=== PATIENT | male | born 1955 | race Caucasian/White ===

== ENCOUNTER 2024-12-13 17:23 | Emergency (ER) | payer MEDICARE, MEDICAID, SELFPAY ==
[2024-12-13] VITALS (7 sets, daily range): BP systolic 134–219; BP diastolic 96–120; PULSE 60–63; RESP 18–20; TEMP 36.4–36.6; O2SAT 95–97; BMI 20.5
--- NOTE | 2024-12-13 17:50 | EKG_ITS ---
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
--- NOTE | 2024-12-13 17:51 | XR_ITS ---
Examination: AP chest single view Technique one AP portable sitting chest single view Date and time: December 13, 2024, 1848 hrs., Comparison June 10, 2023 Indications: Difficulty breathing today, history left lung pneumonia, history Erickson type B thoracic aortic aneurysm Findings: Normal heart size Slightly less prominent parenchymal disease in the left upper lobe No pulmonary edema Prominent osteopenia Impression: Slightly less prominent parenchymal disease in the left upper lobe, probable scarring
--- NOTE | 2024-12-13 17:51 | PD.EDRME ---
Rapid Medical Screening Exam RME Arrival date/time: 12/13/24 17:23 Chief Complaint: Weakness Vital signs: Vital Signs Pulse Rate 60 12/13/24 17:27 Respiratory Rate 19 12/13/24 17:27 Blood Pressure 202/110 H 12/13/24 17:27 Pulse Oximetry (%) 97 12/13/24 17:27 Oxygen Delivery Method Room Air 12/13/24 17:27 Vital signs reviewed by provider: Yes RME Narrative: Patient is a 69-year-old male here requesting more pain medication that is in the ED with concerns for weakness. Denies chest pain palpitations abdominal pain dysuria hematuria melena bloody stools. Denies drugs alcohol and smoking. Patient has a history of chronic pain, A-fib flutter, patient take Xarelto, pacemaker also has a history of hypertension does not know what medications he takes. For the patient he did take his medication in the morning. Patient's net application architect is Dr. Elder
[2024-12-13 18:30] LABS: Basophils # (Auto) 0.1 Thou/mm3 (0.0-0.2); Basophils % (Auto) 2 % (0-2.5); Eosinophils # (Auto) 0.2 Thou/mm3 (0.0-0.5); Eosinophils % (Auto) 3 % (0-10); Hematocrit 37.9 % (41.0-53.0); Hemoglobin 12.4 g/dL (13.5-16.0); Immature Granulocytes Auto 0.01 Thou/mm3 (0.00-0.00); Lymphocytes # (Auto) 2.1 Thou/mm3 (1.0-4.8); Lymphocytes % (Auto) 31 % (10-50); Mean Corpuscular HGB Conc 32.7 g/dl (31.0-37.0); Mean Corpuscular Hemoglobin 28.6 pg (25.0-35.0); Mean Corpuscular Volume 87 fL (80-100); Monocytes # (Auto) 0.5 Thou/mm3 (0.0-0.8); Monocytes % (Auto) 8 % (0-12); Neutrophils # (Auto) 3.9 Thou/mm3 (1.8-7.7); Neutrophils % (Auto) 57 % (37-80); Nucleated Red Blood Cell # 0.00 Thou/mm3 (0.00-0.00); Nucleated Red Blood Cell % 0 /100 WBC (0); Platelet Count 287 Thou/mm3 (140-440); RDW Standard Deviation 52.8 fL (35.1-43.9); Red Blood Count 4.34 Miln/mm3 (4.50-5.90); White Blood Count 6.9 Thou/mm3 (3.8-10.6)
--- NOTE | 2024-12-13 18:32 | EDNOTE_ITS ---
ED Weakness RME/HPI General Chief complaint: Weakness Stated complaint: WEAKNESS Time Seen by Provider: 12/13/24 18:31 Arrival date/time: 12/13/24 17:23 RME / HPI RME / HPI Narrative: 69-year-old male here for evaluation regarding generalized body weakness, patient told me that he woke up this morning more weaker than usual. Also complained of headache described as dull ache, severity mild. Patient usually takes [place] twice a day for chronic neck pain and back pain. Denies chest pain palpitations abdominal pain dysuria hematuria melena bloody stools. Denies drugs alcohol and smoking. Patient has a history of chronic pain, A-fib flutter, patient take Xarelto, pacemaker also has a history of hypertension does not know what medications he takes. For the patient he did take his medication in the morning. Patient's home hospice aide is Dr. Elder. Patient denies any fall. Related Data Home Medications ?Medication ?Instructions ?Recorded ?Confirmed rivaroxaban 15 mg tablet (Xarelto) 15 mg PO QPM 04/16/23 diazepam 10 mg tablet 10 mg PO Q12H PRN prn 04/16/23 doxazosin 4 mg tablet 4 mg PO QDAY 02/20/22 escitalopram oxalate 20 mg tablet 20 mg PO QDAY 04/16/23 hydrocodone 10 mg-acetaminophen 1 tab PO BID PRN Pain 02/20/22 04/16/23 325 mg tablet umeclidinium 62.5 mcg-vilanterol 1 inh inhalation QDAY 02/20/22 04/16/23 25 mcg/actuation powdr for inhalation (Anoro Ellipta) Previous Rx's ?Medication ?Instructions ?Recorded diclofenac 1.5 % drops-lidoc 2.5 1 ea topical QDAY PRN pain #30 09/26/23 %-methyl salicy 4 %-camphor 2 % patches patch hydrocodone 10 mg-acetaminophen 1 tab PO BID PRN pain #15 tabs 09/26/23 325 mg tablet hydrocodone 10 mg-acetaminophen 1 tab PO BID PRN pain #15 tabs 09/26/23 325 mg tablet Allergies Allergy/AdvReac Type Severity Reaction Status Date / Time No Known Allergies Allergy Verified 12/13/24 17:35 Review of Systems Review of Systems Narrative Review of Systems: Review of system reviewed and within normal limits except mentioned in HPI ED Exam Narrative Physical exam: VITAL SIGNS: Reviewed. GENERAL APPEARANCE: Alert and interactive, follows commands, no acute distress, HEAD AND FACE: Non-traumatic. ENT: PERRL, pink conjunctivitis, eyelid no trauma, Mucous membrane moist. NECK: Supple, nontender, no nuchal rigidity. CHEST: No tenderness, no crepitus, no paradoxical movement, no retractions. LUNGS: Clear, well ventilated, symmetric, no rales, no wheezing, no ronchi, no stridor, good breath sounds bilaterally. HEART: Regular rate, regular rhythm, no murmur, no gallops. ABDOMEN: Soft, positive bowel sounds, nondistended, no guarding, nontender, no rebound, no masses, RECTAL: Deferred. GENITAL: Deferred. NEUROLOGICAL: Gross motor function intact sensory function intact, Appropriate for age. MUSCULOSKELETAL: low back nontender, full range of motion. EXTREMITIES: Nontender, full range of motion. SKIN: Color pink, dry, no rash, no lacerations, no abrasions, no contusions. LYMPHATICS: Deferred. Course Quality Measures none Orders Category Date Time Status Bedside COVID-19 Antigen Test NOW Care 12/13/24 17:50 Active Bedside Influenza A&B Antigen Test NOW Care 12/13/24 17:50 Active EKG (ED ONLY) *Do not use* NOW Care 12/13/24 17:50 Completed CXR [XR chest 1V] Stat Exams 12/13/24 17:51 Completed EKG (ED Only) Stat Exams 12/13/24 17:50 Draft BNP [B-Type Natriuretic Peptide] Stat Lab 12/13/24 18:14 Completed CBC Stat Lab 12/13/24 18:14 Completed CMP [Comprehensive Metabolic Panel] Stat Lab 12/13/24 18:14 Completed FLU A&B [Influenza A & B Rapid Panel] Stat Lab 12/13/24 19:05 Completed T4 (Thyroxine) Stat Lab 12/13/24 18:14 Completed TSH [Thyroid Stimulating Hormone] Stat Lab 12/13/24 18:14 Completed Troponin I Stat Lab 12/13/24 18:14 Completed UA, C/S IF [Urinalysis, C/S if Indicated] Stat Lab 12/13/24 19:21 Completed Diazepam [Valium] Med 12/13/24 20:58 Discontinued 10 mg PO X1 ONE HYDROcodone/APAP 10/325 [[place] 10/325] Med 12/13/24 18:40 Discontinued 1 tab PO X1 ONE hydrALAZINE INJ [Apresoline Inj] Med 12/13/24 21:37 Discontinued 10 mg IVP X1 ONE hydrALAZINE INJ [Apresoline Inj] Med 12/13/24 17:50 Discontinued 15 mg IVP X1 ONE Vital Signs Vital signs: Vital Signs Pulse Rate 60 12/13/24 17:27 Respiratory Rate 19 12/13/24 17:27 Blood Pressure 202/110 H 12/13/24 17:27 Pulse Oximetry (%) 97 12/13/24 17:27 Oxygen Delivery Method Room Air 12/13/24 17:27 Weakness MDM Narrative MDM Narrative:: 69-year-old male here for evaluation regarding generalized body weakness, patient told me that he woke up this morning more weaker than usual. Also complained of headache described as dull ache, severity mild. Patient usually takes [place] twice a day for chronic neck pain and back pain. Denies chest pain palpitations abdominal pain dysuria hematuria melena bloody stools. Denies drugs alcohol and smoking. Patient has a history of chronic pain, A-fib flutter, patient take Xarelto, pacemaker also has a history of hypertension does not know what medications he takes. For the patient he did take his medication in the morning. Patient's home hospice aide is Dr. Elder. Patient denies any fall. Patient is laboratory workup today came back benign. EKG showed paced rhythm, ventricular rate of 60 bpm, no ST segment elevation depression noted. Chest x- ray came back unremarkable no pneumonia noted. Patient was given [place], was also given Valium in the emergency room hydralazine IV, and latest blood pres sure was noted to be 176/96. Patient supposed to be taking his blood pressure tonight. Patient currently is not having any complaints. Patient ready to go home. Patient will be By her doctor tonight Patient data External records reviewed:: None Clinical information provided by:: patient Social determinants that could affect healthcare access:: none (Hypertension, chronic pain syndrome) Patient has the following chronic illnesses:: Chronic pain syndrome, hypertension, How is presenting disease/condition affected by chronic disease/condition?: exacerbated by Evaluation data The following diagnostics were reviewed and interpreted by me:: lab results, radiology exam(s) and EKG tracing(s) Lab and/or radiology exams considered but not ordered:: None Interpretation Summary: See results MDM Medications / Prescriptions Medications or Prescriptions considered but not ordered:: None Medication administrations:: Medication Administration History Discontinued Medications Hydrocodone Bitart/Acetaminophen (Hydrocodone/Apap 10/325 Tab) 1 tab PO X1 ONE Stop: 12/13/24 18:41 Last Admin: 12/13/24 18:47 Dose: 1 tab Documented By: EF Diazepam (Diazepam 5 Mg Tablet) 10 mg PO X1 ONE Stop: 12/13/24 20:59 Last Admin: 12/13/24 21:16 Dose: 10 mg Documented By: RC Hydralazine HCl (Hydralazine Inj 20 Mg/Ml Vial) 15 mg IVP X1 ONE Stop: 12/13/24 17:51 Last Admin: 12/13/24 18:47 Dose: 15 mg Documented By: EF Hydralazine HCl (Hydralazine Inj 20 Mg/Ml Vial) 10 mg IVP X1 ONE Stop: 12/13/24 21:38 Last Admin: 12/13/24 21:46 Dose: 10 mg Documented By: CB Hydralazine, diazepam [place] Consultations Consultation(s) initiated? (list below): No Diagnosis Weakness Differential Diagnosis: anemia, dehydration and other (Hypertension) Most likely diagnosis given after review of the tests above:: Hypertension, generalized weakness Admission Indicated Admission indicated?: not indicated Admission Request Was there a request for admission?: No Disposition Plan Disposition Plan: Discharge Discharge Attestation Discharge Attestation: The patient was given an opportunity to ask questions and understood the dada alvarez instructions. Discharge instructions specifically effects, indications for sooner follow up or return to the emergency department, and the expected course of current diagnosis. Patient condition: Stable Discharge Plan Plan Patient Disposition: HOME (Self Care) Discharge Disposition comment: Stable Prescriptions/Referrals Prescriptions/Med Rec: No Action Xarelto 15 mg Tablet 15 mg PO QPM hydrocodone-acetaminophen 10-325 mg Tablet 1 tab PO BID PRN (Reason: Pain) doxazosin 4 mg Tablet 4 mg PO QDAY diazepam 10 mg Tablet 10 mg PO Q12H PRN (Reason: prn) escitalopram oxalate 20 mg tablet 20 mg PO QDAY Patient Comments: TAKE 1 TABLET BY MOUTH EVERY DAY Anoro Ellipta 62.5-25 mcg/actuation blister with device 1 inh INHALATION QDAY Patient Comments: INHALE 1 PUFF BY MOUTH ONCE A DAY hydrocodone-acetaminophen 10-325 mg tablet 1 tab PO BID MDD 4 g APAP PRN (Reason: pain) Qty: 15 0RF hydrocodone-acetaminophen 10-325 mg tablet 1 tab PO BID MDD 4 g APAP PRN (Reason: pain) Qty: 15 0RF avvamsmgzg-veez-px-ellie-camphor 1.5-2.5-4-2 % kit, patch, solution drops 1 ea topical QDAY PRN (Reason: pain) Qty: 30 0RF Referrals: Carlos Hutton MD [Primary Care Provider, Family Practice] - In 1 week Problem List Clinical Impression: Weakness generalized Patient/Caregiver Discharge Instructions Education Materials: ED Weakness (Uncertain Cause) Additional Instructions: Thank you for the opportunity for serving you today. You are stable for discharged . You are advised to: Follow-up with your PCP in 1 to 2 days Return to ED for worsening of symptoms Print Language: Senegalese Stand Alone Forms: Dianna Award Info., Patient Portal Info Letter PA/INDUSTRIAL TRACTOR DRIVER Supervising Physician PA/INDUSTRIAL TRACTOR DRIVER Supervising Physician: Dr Palma
[2024-12-13 18:46] LABS: B-Type Natriuretic Peptide 245 pg/mL (0-100)
[2024-12-13] MEDS: hydrALAZINE INJ 20 MG/ML VIAL 15 MG IVP (18:47)
[2024-12-13 18:50] LABS: Alanine Aminotransferase 8 U/L (10-49); Albumin, Serum 4.4 gm/dL (3.4-4.8); Albumin/Globulin Ratio 1.7 (1.2-2.2); Alkaline Phosphatase 93 U/L (46-116); Anion Gap 4 (7-16); Aspartate Amino Transferase 19 U/L (0-34); BUN/Creatinine Ratio 19 Ratio (12-20); Bilirubin,Total 0.3 mg/dL (0.3-1.2); Blood Urea Nitrogen 33 mg/dL (9-23); Calcium 9.5 mg/dL (8.3-10.6); Calcium (Corrected) 9.5 mg/dL (8.5-10.1); Carbon Dioxide 30.2 mMol/L (20.0-31.0); Chloride 106 mMol/L (98-107); Creatinine (Component) 1.7 mg/dL (0.6-1.3); Estimated Creatinine Clearance 30.7 mL/min (>60); Globulin 2.6 gm/dL (2.3-3.5); Glucose 88 mg/dL (74-106); Osmolality,Calculated 285 (275-295); Potassium 3.6 mMol/L (3.4-5.1); Sodium 140 mMol/L (136-145); Thyroid Stimulating Hormone 2.85 uIU/mL (0.55-4.78); Total Protein 7.0 gm/dL (5.7-8.2); Troponin I < 0.020 ng/mL (0.0-0.045); eGFR 43 See Note
[2024-12-13 19:02] LABS: T4 (Thyroxine) 7.3 mcg/dL (4.5-10.9)
[2024-12-13 19:24] LABS: Collection Type, Urine Clean Catch; Squamous Epithelial Cell,Urine 0 /hpf (0-5)
[2024-12-13 19:28] LABS: Bilirubin,Urine Negative (Negative); Blood,Urine Negative (Negative); Clarity,Urine Clear (Clear/Hazy); Color,Urine Colorless (Lt Yel-Yel); Culture Indicated,Urine Not Indicated; Glucose, Urine Negative (Negative); Ketones,Urine Negative (Negative); Leukocyte Esterase,Urine Negative (Negative); Nitrite,Urine Negative (Negative); PH,Urine 7.0 (5.0-7.0); Protein,Urine Negative (Neg - Trace); RBC,Urine 1 /hpf (0-3); Specific Gravity,Urine 1.007 (1.001-1.035); Urobilinogen,Urine Negative mg/dL (0.0-1.0); WBC,Urine 1 /hpf (0-5)
[2024-12-13 19:30] LABS: Influenza A Ag Negative; Influenza B Ag Negative
[2024-12-13] MEDS: DIAZEPAM 5 MG TABLET 10 MG PO (21:16)
[2024-12-13] MEDS: hydrALAZINE INJ 20 MG/ML VIAL 10 MG IVP (21:46)
== END 2024-12-13 22:56 | disposition home or self-care (01) ==
PROVIDERS: Emergency Medicine; Emergency Provider Emergency Medicine; PCP Family Medicine
DX: R53.1 Weakness (principal); I10 Essential (primary) hypertension; I48.91 Unspecified atrial fibrillation; Z95.0 Presence of cardiac pacemaker
CPT/HCPCS: 36415; 71045; 80053; 81001; 83880; 84436; 84443; 84484; 85025; 87502; 87811; 93005; 96374; 96376; 99284; J0360; A9270

== ENCOUNTER 2024-12-14 14:12 | Emergency (ER) | payer MEDICARE, MEDICAID, SELFPAY ==
[2024-12-14] VITALS (17 sets, daily range): BP systolic 161–232; BP diastolic 67–142; PULSE 60–80; RESP 9–25; TEMP 36.2–37.9; O2SAT 80–98; BMI 21.1
--- NOTE | 2024-12-14 14:28 | XR_ITS ---
Examination: CT brain head without contrast. 2-D sagittal coronal reconstructions Date and time of exam:December 14, 2024, 1819 hrs., Comparison May 11, 2023 Indications: High blood pressure and head pain today CTDI: vol (mGy):48.7 DLP: (mGycm):990 Technique: Multiple CT axial sections of the brain have been obtained, 5 mm slice thickness. Contrast has not been administered. 2-D sagittal, coronal reconstructions have been obtained Low dose protocols were performed. One or more of the following dose reduction techniques were used; automated exposure control, adjustment of the mA and/or KV according to patient size, use of iterative reconstruction technique. Findings: No significant ventricular enlargement. 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 No mass effect or midline shift Basal cisterns are not remarkable. Fourth ventricle is midline. Cranial vault intact. Impression: Negative for acute hemorrhage, mass effect or midline shift
--- NOTE | 2024-12-14 14:30 | EKG_ITS ---
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1955 Requested By: Von Woodson Order Number: [id number] Reading MD: Von Woodson Measurements Intervals [place] Rate: 68 P: 44 PA: 144 QRS: -15 QRSD: 94 T: 50 QT: 447 QTc: 475 Interpretive Statements SINUS RHYTHM POSSIBLE LEFT ATRIAL ENLARGEMENT [-0.1mV P-WAVE IN V1/V2] POSSIBLE LEFT VENTRICULAR HYPERTROPHY [VOLTAGE CRITERIA PLUS LAE OR QRS WIDENING] NONSPECIFIC ST & T-WAVE ABNORMALITY PROLONGED QT INTERVAL Compared to ECG 12/13/2024 18:46:22 T-wave abnormality now present Prolonged QT interval now present Atrial-paced complex(es) or rhythm no longer present ST (T wave) deviation no longer present /store/S0/[id number]/[id number].pdf
--- NOTE | 2024-12-14 14:31 | PD.EDHA ---
ED Headache RME/HPI General Chief Complaint: Headache Stated Complaint: HEADACHE Time Seen by Provider: 12/14/24 14:22 Arrival date/time: 12/14/24 14:12 RME / HPI RME / HPI Narrative: 69-year-old male patient with significant history of anxiety, chronic neck pain, headache, came in for evaluation regarding worsening headache. Patient has been having worsening headache for the last 5 days, despite taking [place] and still having headache. Describes dull ache, severity moderate. Patient denies any recent fall or trauma. Denies any fever denies any focal neurologic deficit. Patient has been taking [place] for chronic neck pain and low back pain. Also taking diazepam. Patient told me that he took all his blood pressure medication this morning despite his blood pressures still above 200 systolic. Related Data Home Medications ?Medication ?Instructions ?Recorded ?Confirmed rivaroxaban 15 mg tablet (Xarelto) 15 mg PO QPM 03/24/19 04/16/23 diazepam 10 mg tablet 10 mg PO Q12H PRN prn 02/20/22 04/16/23 doxazosin 4 mg tablet 4 mg PO QDAY 02/20/22 04/16/23 escitalopram oxalate 20 mg tablet 20 mg PO QDAY 02/20/22 04/16/23 hydrocodone 10 mg-acetaminophen 1 tab PO BID PRN Pain 02/20/22 04/16/23 325 mg tablet umeclidinium 62.5 mcg-vilanterol 1 inh inhalation QDAY 02/20/22 04/16/23 25 mcg/actuation powdr for inhalation (Anoro Ellipta) Previous Rx's ?Medication ?Instructions ?Recorded diclofenac 1.5 % drops-lidoc 2.5 1 ea topical QDAY PRN pain #30 09/26/23 %-methyl salicy 4 %-camphor 2 % patches patch hydrocodone 10 mg-acetaminophen 1 tab PO BID PRN pain #15 tabs 09/26/23 325 mg tablet hydrocodone 10 mg-acetaminophen 1 tab PO BID PRN pain #15 tabs 09/26/23 325 mg tablet acetaminophen 300 mg-codeine 15 mg 1 tab PO Q8H PRN pain #14 tabs 12/15/24 tablet amlodipine 5 mg tablet 5 mg PO QDAY #30 tabs 12/15/24 Allergies Allergy/AdvReac Type Severity Reaction Status Date / Time No Known Allergies Allergy Verified 12/14/24 14:31 Course Quality Measures none Orders Category Date Time Status CT Screening NOW Care 12/15/24 01:29 Completed EKG (ED ONLY) *Do not use* NOW Care 12/14/24 14:[address] angio chest Stat Exams 12/15/24 01:[address] chest abdomen pelvis wo Stat Exams 12/14/24 14:[address] head/brain wo con Stat Exams 12/14/24 14:28 Completed EKG (ED Only) Stat Exams 12/14/24 14:30 Draft US abdomen Stat Exams 12/14/24 14:41 Completed CBC [CBC] Stat Lab 12/14/24 14:56 Completed CMP [Comprehensive Metabolic Panel] Stat Lab 12/14/24 14:56 Completed Troponin I Stat Lab 12/14/24 14:56 Completed UA, C/S IF [Urinalysis, C/S if Indicated] Stat Lab 12/14/24 16:15 Completed Diltiazem Inj [Cardizem Inj] Med 12/15/24 02:57 Discontinued 10 mg IV X1 ONE Diltiazem Inj [Cardizem Inj] Med 12/15/24 00:32 Discontinued 5 mg IV X1 ONE HYDROcodone/APAP 10/325 [[place] 10/325] Med 12/14/24 14:28 Discontinued 1 tab PO X1 ONE HYDROcodone/APAP 10/325 [[place] 10/325] Med 12/14/24 18:23 Discontinued 1 tab PO X1 ONE HYDROcodone/APAP 10/325 [[place] 10/325] Med 12/15/24 02:03 Discontinued 1 tab PO X1 ONE Sodium Chloride 0.9% 500 ml [Ns] 500 ml Med 12/15/24 01:29 Discontinued IV 30 mls/hr hydrALAZINE HCL [Apresoline] Med 12/14/24 14:28 Discontinued 5 mg PO X1 ONE hydrALAZINE HCL [Apresoline] Med 12/14/24 14:33 Discontinued 50 mg PO X1 ONE hydrALAZINE INJ [Apresoline Inj] Med 12/14/24 22:39 Discontinued 20 mg IVP X1 ONE Vital Signs Vital signs: Vital Signs Temperature 98.1 F 12/14/24 14:35 Pulse Rate 70 12/14/24 14:35 Respiratory Rate 16 12/14/24 14:35 Blood Pressure 219/112 H 12/14/24 14:35 Pulse Oximetry (%) 96 12/14/24 14:35 Oxygen Delivery Method Room Air 12/14/24 14:35 Headache MDM Narrative MDM Narrative:: 69-year-old male patient with significant history of anxiety, chronic neck pain, headache, came in for evaluation regarding worsening headache. Patient has been having worsening headache for the last 5 days, despite taking [place] and still having headache. Describes dull ache, severity moderate. Patient denies any recent fall or trauma. Denies any fever denies any focal neurologic deficit. Patient has been taking [place] for chronic neck pain and low back pain. Also taking diazepam. Patient told me that he took all his blood pressure medication this morning despite his blood pressures still above 200 systolic. Patient's laboratory workup is significant for potassium 3.2, creatinine 1.[address] scan of the head came back unremarkable. CT of the chest abdomen and pelvis noncontrast showed Limited assessment of Lindsay type B thoracic aortic aneurysm and dissection as there is no contrast intravenous on this study However, transverse dimensions descending thoracic aorta 5.1 x 4.3 cm compared to 4.8 x 3.5 cm on CTA chest June 10, 2023 consistent with interval enlargement, recommend transfer for assessment by cardiovascular service No abdominal aortic aneurysm dilatation Prominent osteopenia with advanced degenerative disc disease L5-S1 EKG showed normal sinus rhythm, ventricular rate of 60 bpm, no ST segment elevation or depression noted. Patient is to be transferred and evaluated by cardiovascular surgeon. Regarding thoracic aortic aneurysm. Care transferred to Dr Pablo at 1130 pm for final disposition Patient data External records reviewed:: None Clinical information provided by:: patient Social determinants that could affect healthcare access:: none Patient has the following chronic illnesses:: Hypertension, chronic neck pain chronic back pain How is presenting disease/condition affected by chronic disease/condition?: exacerbated by Evaluation data The following diagnostics were reviewed and interpreted by me:: lab results and radiology exam(s) Lab and/or radiology exams considered but not ordered:: None Interpretation Summary: See results MDM Medications / Prescriptions Medications or Prescriptions considered but not ordered:: None Medication administrations:: Medication Administration History Discontinued Medications Hydrocodone Bitart/Acetaminophen (Hydrocodone/Apap 10/325 Tab) 1 tab PO X1 ONE Stop: 12/14/24 14:29 Last Admin: 12/14/24 14:50 Dose: 1 tab Documented By: BY Hydrocodone Bitart/Acetaminophen (Hydrocodone/Apap 10/325 Tab) 1 tab PO X1 ONE Stop: 12/14/24 18:24 Last Admin: 12/14/24 18:54 Dose: 1 tab Documented By: BY Hydrocodone Bitart/Acetaminophen (Hydrocodone/Apap 10/325 Tab) 1 tab PO X1 ONE Stop: 12/15/24 02:04 Last Admin: 12/15/24 02:34 Dose: 1 tab Documented By: RADHA Diltiazem HCl (Diltiazem Inj 5 Mg/Ml Vial 5 Ml) 5 mg IV X1 ONE Stop: 12/15/24 00:33 Last Admin: 12/15/24 01:41 Dose: 5 mg Documented By: AGUSTIN Diltiazem HCl (Diltiazem Inj 5 Mg/Ml Vial 5 Ml) 10 mg IV X1 ONE Stop: 12/15/24 02:58 Last Admin: 12/15/24 03:05 Dose: 10 mg Documented By: AGUSTIN Hydralazine HCl (Hydralazine Hcl 25 Mg Tablet) 5 mg PO X1 ONE Stop: 12/14/24 14:29 Last Admin: 12/14/24 15:02 Dose: Not Given Documented By: BY Non-Admin Reason: Cancelled by Provider Hydralazine HCl (Hydralazine Hcl 25 Mg Tablet) 50 mg PO X1 ONE Stop: 12/14/24 14:34 Last Admin: 12/14/24 14:50 Dose: 50 mg Documented By: BY Hydralazine HCl (Hydralazine Inj 20 Mg/Ml Vial) 20 mg IVP X1 ONE Stop: 12/14/24 22:40 Last Admin: 12/14/24 22:47 Dose: 20 mg Documented By: CVL Sodium Chloride (Ns) 500 mls @ 30 mls/hr IV .[id number] ONE Stop: 12/15/24 18:08 Last Admin: 12/15/24 01:42 Dose: 30 mls/hr Documented By: AGUSTIN See MDM Consultations Consultation(s) initiated? (list below): Yes Diagnosis Differential diagnosis headache: migraine and headache Most likely diagnosis given after review of the tests above:: Thoracic aortic aneurysm, headache Admission Indicated Admission indicated?: not indicated Admission Request Was there a request for admission?: No Disposition Plan Disposition Plan: Discharge Discharge Attestation Discharge Attestation: The patient and all family members were given an opportunity to ask questions and understood the discharge instructions. Discharge instructions specifically effects, indications for sooner follow up or return to the emergency department, and the expected course of current diagnosis. Patient condition: Stable Discharge Plan Plan Patient Disposition: HOME (Self Care) Discharge Disposition comment: stable Prescriptions/Referrals Prescriptions/Med Rec: New amlodipine 5 mg tablet 5 mg PO QDAY Qty: 30 1RF acetaminophen-codeine 300-15 mg tablet 1 tab PO Q8H PRN (Reason: pain) Qty: 14 0RF No Action Xarelto 15 mg Tablet 15 mg PO QPM hydrocodone-acetaminophen 10-325 mg Tablet 1 tab PO BID PRN (Reason: Pain) doxazosin 4 mg Tablet 4 mg PO QDAY diazepam 10 mg Tablet 10 mg PO Q12H PRN (Reason: prn) escitalopram oxalate 20 mg tablet 20 mg PO QDAY Patient Comments: TAKE 1 TABLET BY MOUTH EVERY DAY Anoro Ellipta 62.5-25 mcg/actuation blister with device 1 inh INHALATION QDAY Patient Comments: INHALE 1 PUFF BY MOUTH ONCE A DAY hydrocodone-acetaminophen 10-325 mg tablet 1 tab PO BID MDD 4 g APAP PRN (Reason: pain) Qty: 15 0RF hydrocodone-acetaminophen 10-325 mg tablet 1 tab PO BID MDD 4 g APAP PRN (Reason: pain) Qty: 15 0RF ufjcvvkolj-ysqt-nn-ellie-camphor 1.5-2.5-4-2 % kit, patch, solution drops 1 ea topical QDAY PRN (Reason: pain) Qty: 30 0RF Referrals: Carlos Hutton MD [Primary Care Provider, Family Practice] - In 1 week Problem List Clinical Impression: Headache, Chronic thoracic aortic dissection Patient/Caregiver Discharge Instructions Discharge Activity: activity as tolerated Education Materials: Low-Salt Choices, Identifying Your Heart Risks Additional Instructions: Begin amlodipine at dinner and continue lisinopril in the a.m. Monitor blood pressure twice daily and if greater than 160/90 increase amlodipine to twice daily. Follow-up with thoracic surgeon within 1 to 2 weeks and return if experiencing chest pain shortness of breath lightheadedness or worsening illness. Print Language: Turkish Stand Alone Forms: Dianna Award Info., Patient Portal Info Letter
--- NOTE | 2024-12-14 14:41 | XR_ITS ---
Examination: Abdomen sonogram, complete Date and time of exam: December 14, 2024, 1539 hours INDICATIONS: History ruptured abdominal aorta 2023. Technique: Multiple real-time grayscale transabdominal sonographic images of the abdomen have been obtained. Findings: Absent gallbladder Common bile duct 0.6 cm Pancreatic head 1.1 cm Aorta in the abdomen measures AP dimension proximal aorta 3.0 cm Liver 15.0 cm Normal hepatopedal portal venous flow Patent IVC Right kidney 9.8 cm cortex 1.2 cm Left kidney 9.2 cm cortex 1.4 cm Multiple left renal cyst The largest is in the medial aspect of the kidney 10 mm Spleen obscured by bowel gas IMPRESSION: Proximal abdominal aorta measures 3.0 cm AP dimension
--- NOTE | 2024-12-14 14:41 | XR_ITS ---
Examination: CT chest, without intravenous contrast. CT abdomen, without intravenous contrast. CT pelvis, without intravenous contrast. 2-D sagittal and coronal reconstructions. 3-D reconstructions. Date and time of exam:December 14, 2024, 1619 hrs., Comparison CT chest June 10, 2023 Indications: History Erickson type B thoracic aortic aneurysm, chest pain lower back pain CTDI vol (mgy) 4.47 DLP (MGycm)319 Technique: Multiple CT images, 3.0 mm slice thickness, obtained chest, abdomen, pelvis, with the high-resolution 64 slice scanner.. Sagittal and coronal 2-D reconstructions are obtained. 3-D reconstructions Low dose protocols were performed. One or more of the following dose reduction techniques were used; automated exposure control, adjustment of the mA and/or KV according to patient size, use of iterative reconstruction technique. Findings: AP dimension ascending thoracic aorta 3.6 cm Descending thoracic aortic aneurysm, AP dimension 5.1 cm x 4.3 cm compared with 4.8 cm x 3.5 cm on CTA study June 10, 2023 Stable calcified granuloma in the left upper lobe No hemothorax No visualized liver or splenic lesion Absent gallbladder No extrahepatic biliary tract dilatation Suprarenal abdominal aorta 20 mm No hydronephrosis Infrarenal abdominal aorta 18 mm No free blood in the abdomen No bowel obstruction Abundant stool in the colon Intact urinary bladder Impression: Limited assessment of [place] type B thoracic aortic aneurysm and dissection as there is no contrast intravenous on this study However, transverse dimensions descending thoracic aorta 5.1 x 4.3 cm compared to 4.8 x 3.5 cm on CTA chest June 10, 2023 consistent with interval enlargement, recommend transfer for assessment by cardiovascular service No abdominal aortic aneurysm dilatation Prominent osteopenia with advanced degenerative disc disease L5-S1
[2024-12-14 15:12] LABS: Basophils # (Auto) 0.1 Thou/mm3 (0.0-0.2); Basophils % (Auto) 1 % (0-2.5); Eosinophils # (Auto) 0.1 Thou/mm3 (0.0-0.5); Eosinophils % (Auto) 1 % (0-10); Hematocrit 40.1 % (41.0-53.0); Hemoglobin 13.1 g/dL (13.5-16.0); Immature Granulocytes Auto 0.02 Thou/mm3 (0.00-0.00); Lymphocytes # (Auto) 1.4 Thou/mm3 (1.0-4.8); Lymphocytes % (Auto) 16 % (10-50); Mean Corpuscular HGB Conc 32.7 g/dl (31.0-37.0); Mean Corpuscular Hemoglobin 28.3 pg (25.0-35.0); Mean Corpuscular Volume 87 fL (80-100); Monocytes # (Auto) 0.6 Thou/mm3 (0.0-0.8); Monocytes % (Auto) 7 % (0-12); Neutrophils # (Auto) 6.5 Thou/mm3 (1.8-7.7); Neutrophils % (Auto) 76 % (37-80); Nucleated Red Blood Cell # 0.00 Thou/mm3 (0.00-0.00); Nucleated Red Blood Cell % 0 /100 WBC (0); Platelet Count 280 Thou/mm3 (140-440); RDW Standard Deviation 53.0 fL (35.1-43.9); Red Blood Count 4.63 Miln/mm3 (4.50-5.90); White Blood Count 8.6 Thou/mm3 (3.8-10.6)
[2024-12-14 15:42] LABS: Alanine Aminotransferase 8 U/L (10-49); Albumin, Serum 4.4 gm/dL (3.4-4.8); Albumin/Globulin Ratio 1.8 (1.2-2.2); Alkaline Phosphatase 96 U/L (46-116); Anion Gap 10 (7-16); Aspartate Amino Transferase 17 U/L (0-34); BUN/Creatinine Ratio 23 Ratio (12-20); Bilirubin,Total 0.3 mg/dL (0.3-1.2); Blood Urea Nitrogen 35 mg/dL (9-23); Calcium 9.1 mg/dL (8.3-10.6); Calcium (Corrected) 9.1 mg/dL (8.5-10.1); Carbon Dioxide 30.5 mMol/L (20.0-31.0); Chloride 105 mMol/L (98-107); Creatinine (Component) 1.5 mg/dL (0.6-1.3); Estimated Creatinine Clearance 35.6 mL/min (>60); Globulin 2.4 gm/dL (2.3-3.5); Glucose 100 mg/dL (74-106); Osmolality,Calculated 296 (275-295); Potassium 3.2 mMol/L (3.4-5.1); Sodium 145 mMol/L (136-145); Total Protein 6.8 gm/dL (5.7-8.2); Troponin I 0.031 ng/mL (0.0-0.045); eGFR 49 See Note
[2024-12-14 16:32] LABS: Collection Type, Urine Clean Catch; Squamous Epithelial Cell,Urine 0 /hpf (0-5)
[2024-12-14 16:38] LABS: Bilirubin,Urine Negative (Negative); Blood,Urine Negative (Negative); Clarity,Urine Clear (Clear/Hazy); Color,Urine Lt-Yellow (Lt Yel-Yel); Culture Indicated,Urine Not Indicated; Glucose, Urine Negative (Negative); Ketones,Urine Negative (Negative); Leukocyte Esterase,Urine Positive (Negative); Nitrite,Urine Negative (Negative); PH,Urine 7.0 (5.0-7.0); Protein,Urine Negative (Neg - Trace); RBC,Urine 1 /hpf (0-3); Specific Gravity,Urine 1.017 (1.001-1.035); Urobilinogen,Urine Negative mg/dL (0.0-1.0); WBC,Urine 3 /hpf (0-5)
--- NOTE | 2024-12-14 19:16 | PC.NURSE ---
patient bp elevated md notified , and patient took night time meds at this time
--- NOTE | 2024-12-14 20:00 | PC.NURSE ---
PT RESTING QUIETLY. HAS NO COMPLAINTS AT THIS TIME.
[2024-12-14] MEDS: hydrALAZINE INJ 20 MG/ML VIAL IVP (22:47)
--- NOTE | 2024-12-14 22:58 | PC.NURSE ---
PT INFORMATION SENT TO [facility] FOR TRANSFER, [facility] CALLED BACK AND TALKED TO DARRELL OTT, [facility] INFORMED DARRELL THAT THEY DON'T HAVE THORACIC SURGEON.
--- NOTE | 2024-12-14 23:00 | PC.NURSE ---
FAXED PT INFORMATION TO [facility] FOR TRANSFER, [facility] NURSE TRANSFER CALLED BACK AND TALKED TO DARRELL OTT.
[2024-12-15] VITALS (15 sets, daily range): BP systolic 146–183; BP diastolic 86–112; PULSE 65–96; RESP 8–29; O2SAT 93–98
--- NOTE | 2024-12-15 00:13 | PC.NURSE ---
BP IS HIGH. SPOKE WITH DR Porras WAITING FOR ORDERS. PT IN NO DISTRESS . DENIES PAIN.
--- NOTE | 2024-12-15 01:28 | XR_ITS ---
Examination: CTA chest with intravenous contrast 2-D reconstructions 3-D reconstructions, vascular Date and time of exam: December 15, 2024, 0155 hrs., Comparison 12/14/2024 CTDI: vol (mGy) 9.75 DLP: (mGycm) 226 Technique: Multiple axial sections of the thorax have been obtained. 3 mm slice thickness, from below the hemidiaphragms to above the apices of the lungs. Mediastinal and lung density settings have been obtained. 2-D sagittal and coronal reconstructions. 3-D angiographic renderings, 3-D volume renderings, 3D post processing, vascular maximum intensity projections obtained. Contrast administered is 60 cc Isovue-300. Low dose protocols were performed. One or more of the following dose reduction techniques were used; automated exposure control, adjustment of the mA and/or KV according to patient size, use of iterative reconstruction technique. Findings: Negative for pulmonary artery emboli Mild enlargement cardiac contour [place] type B thoracic aortic aneurysm and dissection The lower thoracic aortic AP dimension including a true and false lumen is 5.8 cm compared to 4.6 cm on June 10, 2023, the transverse dimension 4.2 cm compared to 3.5 cm on June 10, 2023 There is no free blood in the pleural space COPD 13 mm nodule with calcification left upper lobe The dissection extends to at least the upper abdominal aorta axial image 2:30, the dissection does not appear to extend into the renal arteries or mid or lower abdominal aorta No liver splenic or renal infarction Impression: Enlarging [place] type B thoracic aortic aneurysmal dilatation with dissection No free blood in the pleural space Recommend timely referral to cardiovascular services
[2024-12-15] MEDS: DILTIAZEM INJ 5 MG/ML VIAL 5 ML IV (01:41)
[2024-12-15] MEDS: SODIUM CHLORIDE 0.9% 500 ML 500 ML 30 ML IV (01:42)
--- NOTE | 2024-12-15 02:30 | EDNOTE_ITS ---
Emergency Room Addendum Addendum Narrative: 2300: Care assumed from Dr. Bartlett (emergency physician). Past medical, surgical, social and family history reviewed. Vitals and home medications reviewed. Results and treatment plan discussed. I will assume the care of the patient at this time and will follow the patient, pending cardiothoracic surgeon consult. The following addendum documentation note is intended to reflect any pending information, findings, or radiology results not included in the patient?s initial chart by the previous shift scribe. 01:24 - Cardiothoracic surgeon from [facility] made aware of the patient?s HPI, PMHx, lab and/or radiology results. Discussed treatment plan. Suggest Chest CTA. RADIOLOGY Chest CTA: Findings: The thoracic aorta demonstrates diffuse atheromatous changes. The origins of the right brachiocephalic, left common carotid and left subclavian arteries are patent. There is fusiform aneurysm of the distal descending thoracic aorta extending to the diaphragmatic hiatus measuring 4.2 x 4.6 cm. There is Gordon type B aortic dissection involving the distal descending thoracic aorta extending to the suprarenal abdominal aorta with differential opacification of the true and false lumens. There is fusiform aneurysm of the suprarenal abdominal aorta measuring 3.4 x 3.6 cm. The celiac trunk is originating from the false lumen. The superior mesenteric, inferior mesenteric and bilateral renal arteries are patent to the extent visualized. The common iliac arteries are patent bilaterally. There is no filling defect within the pulmonary artery divisions to suggest pulmonary thromboembolism. The mediastinum demonstrates no evidence of mass or lymphadenopathy. There is no pericardial effusion. A cardiac pacemaker is identified in the left chest wall with its lead tips in the right atrium and ventricle respectively. Emphysematous changes are noted in the lungs. Streaky atelectasis/scarring are seen at the lung bases bilaterally. There is 1.3 cm partially calcified pleural based nodule along the left upper anterior chest wall (axial image 91/305). No evidence of pleural effusion or pneumothorax. The spleen, pancreas, adrenals and right kidney are unremarkable. There is subcentimeter too small to characterize hypodensities in the left lobe of liver. The gallbladder is surgically absent. There is a 8 mm too small to characterize hypodensity in the left kidney. No evidence of bowel obstruction. A moderate amount of fecal material is present in the colon. There is no free fluid or free air. Osseous degenerative changes are noted. Impression: 1. Fusiform aneurysm of the distal descending thoracic and suprarenal abdominal aorta with Erickson type B dissection as described. No periaortic hematoma or contrast leak to suggest active bleed. 2. No CT evidence of pulmonary thromboembolism. 3. Left upper lobe pleural based nodule. Recommend follow up 4. Other findings as described above. 05:04 - Case discussed with patient's previous cardiothoracic surgeons who will be glad to see patient. Given patient's asymptomatic status and lesser dimensions in CTA as compared to CT scan, will refer as outpatient and issue precautionary instructions. Patient will be discharged to home, advised F/U with vascular clinic. Patient will be started on Amlodipine 5 mg and instructions to continue Lisinopril 20 mg twice per day.
[2024-12-15] MEDS: DILTIAZEM INJ 5 MG/ML VIAL 5 ML 10 MG IV (03:05)
--- NOTE | 2024-12-15 03:50 | PRELIM_ITS ---
CT angiogram of the chest and abdomen with intravenous contrast (axial sections with 3D, sagittal and coronal reformats) December 15, 2024 0155 hours Clinical History: Known thoracic descending aneurysm Comparison: None Findings: The thoracic aorta demonstrates diffuse atheromatous changes. The origins of the right brachiocephalic, left common carotid and left subclavian arteries are patent. There is fusiform aneurysm of the distal descending thoracic aorta extending to the diaphragmatic hiatus measuring 4.2 x 4.6 cm. There is Erickson type B aortic dissection involving the distal descending thoracic aorta extending to the suprarenal abdominal aorta with differential opacification of the true and false lumens. There is fusiform aneurysm of the suprarenal abdominal aorta measuring 3.4 x 3.6 cm. The celiac trunk is originating from the false lumen. The superior mesenteric, inferior mesenteric and bilateral renal arteries are patent to the extent visualized. The common iliac arteries are patent bilaterally. There is no filling defect within the pulmonary artery divisions to suggest pulmonary thromboembolism. The mediastinum demonstrates no evidence of mass or lymphadenopathy. There is no pericardial effusion. A cardiac pacemaker is identified in the left chest wall with its lead tips in the right atrium and ventricle respectively. Emphysematous changes are noted in the lungs. Streaky atelectasis/scarring are seen at the lung bases bilaterally. There is 1.3 cm partially calcified pleural based nodule along the left upper anterior chest wall (axial image 91/305). No evidence of pleural effusion or pneumothorax. The spleen, pancreas, adrenals and right kidney are unremarkable. There is subcentimeter too small to characterize hypodensities in the left lobe of liver. The gallbladder is surgically absent. There is a 8 mm too small to characterize hypodensity in the left kidney. No evidence of bowel obstruction. A moderate amount of fecal material is present in the colon. There is no free fluid or free air. Osseous degenerative changes are noted. Impression: 1. Fusiform aneurysm of the distal descending thoracic and suprarenal abdominal aorta with Erickson type B dissection as described. No periaortic hematoma or contrast leak to suggest active bleed. 2. No CT evidence of pulmonary thromboembolism. 3. Left upper lobe pleural based nodule. Recommend follow up 4. Other findings as described above. Discussion Details: Results verbally communicated to : Dr. Sullivan at 03:45 AM 12/15/2024 Report Electronically Signed By: Cyndee Pepe 12/15/2024 3:49:48 AM [EST]
--- NOTE | 2024-12-15 04:51 | PC.NURSE ---
ADDITIONAL TEST DONE, RESULT FAXED TO [facility] AND CALLED TRANSFER CENTER ABOUT DR. HODGE WANTS TO TALK TO THORACIC SURGOEN AGAIN.
== END 2024-12-15 06:12 | disposition home or self-care (01) ==
PROVIDERS: Nurse Practitioner Family; Emergency Provider Emergency Medicine; PCP Family Medicine
DX: I71.012 Dissection of descending thoracic aorta (principal); R51.9 Headache, unspecified; R91.1 Solitary pulmonary nodule; R94.31 Abnormal electrocardiogram [ECG] [EKG]; I10 Essential (primary) hypertension; Z79.01 Long term (current) use of anticoagulants
CPT/HCPCS: 36415; 70450; 71250; 71275; 74176; 76700; 80053; 81001; 84484; 85025; 93005; 96374; 99284; A4649; J0360; J3490; J7999; Q9967; A9270

== ENCOUNTER 2024-12-17 15:31 | Emergency (ER) | payer MEDICARE, MEDICAID, SELFPAY ==
[2024-12-17 16:02] VITALS: BP 185/101; BP 190/107; PULSE 74; RESP 18; TEMP 36.7; O2SAT 97
--- NOTE | 2024-12-17 16:09 | XR_ITS ---
Examination: PA lateral chest 2 views Technique: Upright PA lateral chest 2 views Date and time: December 09, 2024, 1632 hrs., Comparison 12/13/2024 Indications: Chest pain today. Findings: Moderate hyperexpansion Normal heart size Transvenous dual-chamber bipolar cardiac leads satisfactory position. 27 mm pulmonary nodule with calcification left upper lobe adjacent to the pulse generator Impression: COPD No pneumonia. Recommend CT chest without contrast follow-up to confirm stability of calcified pulmonary nodule left upper lobe compared to CT chest June 10, 2023
--- NOTE | 2024-12-17 16:09 | EKG_ITS ---
[facility] Test Date: 2024-12-17 Pat Name: KAYCEE HARKINS Department: Room: - Gender: Male Hand Box Folder: : 1955 Requested By: Roopa Escalante Order Number: [id number] Reading MD: Roopa Escalante Measurements Intervals Campbell Rate: 71 P: 80 WY: 162 QRS: -47 QRSD: 89 T: 72 QT: 376 QTc: 410 Interpretive Statements SINUS RHYTHM POSSIBLE LEFT ATRIAL ENLARGEMENT [-0.1mV P-WAVE IN V1/V2] LEFT ANTERIOR FASCICULAR BLOCK [QRS AXIS <= -45, QR IN I, RS IN II] NONSPECIFIC T-WAVE ABNORMALITY Compared to ECG 12/14/2024 14:55:59 Left anterior fascicular block now present Prolonged QT interval no longer present T-wave abnormality still present /store/S0/[id number].pdf
--- NOTE | 2024-12-17 16:11 | PD.EDRME ---
Rapid Medical Screening Exam E Arrival date/time: 12/17/24 15:31 This is a 69-year-old male that complaint plaints of a headache today. Patient states he took 3 Tylenol 3's prior to coming to the emergency room. Patient states he was seen here couple days ago for the same problem in the emergency room. And had several tests done. Patient was found to have Thoracic aortic aneurysm. Upon arrival to the emergency room patient is now complaining of chest pain. Patient denies any shortness of breath. Patient denies any focal deficits. Patient denies any dizziness, double vision, blurry vision. Patient reports history of anxiety A-fib with RVR, high blood pressure. I have greeted and performed a focused initial assessment of this patient. Initial appropriate labs ordered at this time. A comprehensive ED assessment and evaluation of the patient and analysis of all test and completion of medical decision making process will be conducted by additional ED provider. Chief Complaint: Headache Time Seen by Provider: 12/17/24 15:56 Vital signs: Vital Signs Temperature 98.1 F 12/17/24 16:02 Pulse Rate 74 12/17/24 16:02 Respiratory Rate 18 12/17/24 16:02 Blood Pressure 185/101 H 12/17/24 16:02 Pulse Oximetry (%) 97 12/17/24 16:02 Oxygen Delivery Method Room Air 12/17/24 16:02
[2024-12-17 16:42] LABS: Basophils # (Auto) 0.1 Thou/mm3 (0.0-0.2); Basophils % (Auto) 1 % (0-2.5); Eosinophils # (Auto) 0.1 Thou/mm3 (0.0-0.5); Eosinophils % (Auto) 1 % (0-10); Hematocrit 38.4 % (41.0-53.0); Hemoglobin 12.6 g/dL (13.5-16.0); Immature Granulocytes Auto 0.02 Thou/mm3 (0.00-0.00); Lymphocytes # (Auto) 1.8 Thou/mm3 (1.0-4.8); Lymphocytes % (Auto) 21 % (10-50); Mean Corpuscular HGB Conc 32.8 g/dl (31.0-37.0); Mean Corpuscular Hemoglobin 28.2 pg (25.0-35.0); Mean Corpuscular Volume 86 fL (80-100); Monocytes # (Auto) 0.5 Thou/mm3 (0.0-0.8); Monocytes % (Auto) 6 % (0-12); Neutrophils # (Auto) 5.9 Thou/mm3 (1.8-7.7); Neutrophils % (Auto) 70 % (37-80); Nucleated Red Blood Cell # 0.00 Thou/mm3 (0.00-0.00); Nucleated Red Blood Cell % 0 /100 WBC (0); Platelet Count 300 Thou/mm3 (140-440); RDW Standard Deviation 51.6 fL (35.1-43.9); Red Blood Count 4.47 Miln/mm3 (4.50-5.90); White Blood Count 8.4 Thou/mm3 (3.8-10.6)
[2024-12-17 17:06] LABS: B-Type Natriuretic Peptide 61 pg/mL (0-100)
[2024-12-17 17:07] LABS: Alanine Aminotransferase 11 U/L (10-49); Albumin, Serum 4.5 gm/dL (3.4-4.8); Albumin/Globulin Ratio 2.0 (1.2-2.2); Alkaline Phosphatase 94 U/L (46-116); Anion Gap 8 (7-16); Aspartate Amino Transferase 19 U/L (0-34); BUN/Creatinine Ratio 25 Ratio (12-20); Bilirubin,Total 0.4 mg/dL (0.3-1.2); Blood Urea Nitrogen 55 mg/dL (9-23); Calcium 9.7 mg/dL (8.3-10.6); Calcium (Corrected) 9.7 mg/dL (8.5-10.1); Carbon Dioxide 28.2 mMol/L (20.0-31.0); Chloride 106 mMol/L (98-107); Creatinine (Component) 2.2 mg/dL (0.6-1.3); Estimated Creatinine Clearance 24.3 mL/min (>60); Globulin 2.3 gm/dL (2.3-3.5); Glucose 96 mg/dL (74-106); Osmolality,Calculated 298 (275-295); Potassium 3.5 mMol/L (3.4-5.1); Sodium 142 mMol/L (136-145); Total Protein 6.8 gm/dL (5.7-8.2); Troponin I < 0.020 ng/mL (0.0-0.045); eGFR 31 See Note
--- NOTE | 2024-12-17 18:52 | XR_ITS ---
Examination: CT chest, without intravenous contrast. Sagittal and coronal 2-D reconstructions. Exam date and time: December 09, 2024, 1903 hrs., June 10, 2023 Indications: Chest pain today CTDI:vol (mGy) 7.43 DLP: (mGycm) 301 Technique: Multiple 3.0 mm axial sections of the chest to been obtained. Bone and lung density settings are obtained. Sagittal and coronal 2-D reconstructions have been obtained. Low dose protocols were performed. One or more of the following dose reduction techniques were used; automated exposure control, adjustment of the mA and/or KV according to patient size, use of iterative reconstruction technique. Findings: Stable thoracic aortic aneurysmal dilatation descending thoracic aorta, best depicted on the contrast study 12/15/2024 Pulmonary nodular calcification is stable in the left upper lobe compared to June 10, 2023 No new pulmonary nodules No pneumonia or pulmonary edema No visualized liver or splenic lesion Absent gallbladder Impression: Stable left upper lobe pulmonary nodule with calcification consistent with granuloma No pneumonia or pulmonary edema Please see the CTA chest report 12/15/2024 for description of enlarging [place] type B thoracic aortic aneurysm dilatation with dissection
--- NOTE | 2024-12-17 19:33 | PD.EDADULT ---
ED General RME/HPI General Chief complaint: Headache Stated complaint: HEADACHE (09/28) Time Seen by Provider: 12/17/24 15:56 Arrival date/time: 12/17/24 15:31 CC: Chest pain HPI onset approximately 3-1/2-hour ago lasting lasting 30 minutes, gradual onset worsened ever became was 5 out of 10 scale and then spontaneously resolved. No chest pain since then. Patient has remained afebrile nontoxic-appearing not in any acute distress with no recurrence of the chest pain. Please note the patient had an extensive workup 4 days ago for thoracic aneurysm that he had forgotten about. That workup had him referred to the cardiothoracic surgeons that he had seen in prior years. Please refer to the note from December 13. Currently the patient denies any nausea vomiting chest pain shortness of breath or difficulty breathing. RME / HPI RME / HPI narrative: 12/17/24 15:31 This is a 69-year-old male that complaint plaints of a headache today. Patient states he took 3 Tylenol 3's prior to coming to the emergency room. Patient states he was seen here couple days ago for the same problem in the emergency room. And had several tests done. Patient was found to have Thoracic aortic aneurysm. Upon arrival to the emergency room patient is now complaining of chest pain. Patient denies any shortness of breath. Patient denies any focal deficits. Patient denies any dizziness, double vision, blurry vision. Patient reports history of anxiety A-fib with RVR, high blood pressure. I have greeted and performed a focused initial assessment of this patient. Initial appropriate labs ordered at this time. A comprehensive ED assessment and evaluation of the patient and analysis of all test and completion of medical decision making process will be conducted by additional ED provider. Related Data Home Medications ?Medication ?Instructions ?Recorded ?Confirmed rivaroxaban 15 mg tablet (Xarelto) 15 mg PO QPM 03/24/19 04/16/23 diazepam 10 mg tablet 10 mg PO Q12H PRN prn 02/20/22 04/16/23 doxazosin 4 mg tablet 4 mg PO QDAY 02/20/22 04/16/23 escitalopram oxalate 20 mg tablet 20 mg PO QDAY 02/20/22 04/16/23 hydrocodone 10 mg-acetaminophen 1 tab PO BID PRN Pain 02/20/22 04/16/23 325 mg tablet umeclidinium 62.5 mcg-vilanterol 1 inh inhalation QDAY 02/20/22 04/16/23 25 mcg/actuation powdr for inhalation (Anoro Ellipta) Previous Rx's ?Medication ?Instructions ?Recorded diclofenac 1.5 % drops-lidoc 2.5 1 ea topical QDAY PRN pain #30 09/26/23 %-methyl salicy 4 %-camphor 2 % patches patch hydrocodone 10 mg-acetaminophen 1 tab PO BID PRN pain #15 tabs 09/26/23 325 mg tablet hydrocodone 10 mg-acetaminophen 1 tab PO BID PRN pain #15 tabs 09/26/23 325 mg tablet acetaminophen 300 mg-codeine 15 mg 1 tab PO Q8H PRN pain #14 tabs 12/15/24 tablet amlodipine 5 mg tablet 5 mg PO QDAY #30 tabs 12/15/24 Allergies Allergy/AdvReac Type Severity Reaction Status Date / Time No Known Allergies Allergy Verified 12/17/24 15:34 Review of Systems Review of Systems Narrative Review of Systems: GEN: No fever, no chills, no weight loss EYES: No discharge, no visual changes, no pain HEENT: No ear pain, no congestion, no sore throat PULM: No shortness of breath, no cough, no congestion CV: + chest pain, no dyspnea on exertion, no palpitations GI: No nausea, no vomiting, no diarrhea, no pain, no constipation : No frequency, no urgency, no dysuria MUSC/SKEL: No joint pain, no back pain SKIN: No rash PSYCH: No hallucinations, no depression HEME/LYMPH: No easy bleeding or bruising tendencies NEURO: No weakness, no headache Past Medical History Past Medical History NEUROLOGIC: Positive Cerebrovascular Accident; Negative Neurological Disorders or Seizures CARDIAC: Positive Cardiac Disorders, Myocardial Infarction, Atrial Fibrillation, Aneurysm, Edema and Hypertension; Negative Congestive Heart Failure RESPIRATORY: Negative Chronic Obstructive Pulmonary Disease (COPD) or Asthma GASTROINTESTINAL: Negative Hepatitis GENITOURINARY: Positive Prostate Cancer; Negative Renal Disease MUSCULOSKELETAL: Positive Musculoskeletal Disorders and Arthritis ENDOCRINE: Negative Diabetes Mellitus Type 1 or Diabetes Mellitus Type 2 HEMATOLOGIC: Negative Blood Disorders or Sickle Cell Disease PSYCHO/SOCIAL: Positive Anxiety OTHER HISTORY: Positive Radiation Therapy, Chicken Pox, Measles, Cancer and Prostate Cancer; Negative Blood Transfusions, Blood Transfusion Reaction or Anesthesia Reactions Family History FAMILY HISTORY: Positive Family Cancer Surgical History SURGICAL: Positive Pacemaker, Tonsillectomy and Abdominal Surgery Social History SMOKING STATUS: Current every day smoker SECOND HAND EXPOSURE: No SUBSTANCE USE: does not use ED Exam Narrative Physical exam: [General: Anxious but not in any acute distress Head normocephalic HEENT: Within acceptable limits Neck is supple nontender Chest equal chest rise nontender to palpation Respiratory: Clear to auscultation no wheezes crackles or rubs CV: Rate rhythm is regular no murmurs rubs or clicks Abdomen is soft nontender no masses positive bowel sounds all 4 quadrants Back: No CVA tenderness no spinous process tenderness from cervical spine thoracic and lumbar spine Skin: Intact no petechiae rash induration ulceration or crepitus Extremities: Moving all extremity against resistance cap refill less than 2 seconds neurosensory intact. No lower extremity edema Neuro: Awake alert oriented x3 Glascow coma 15 no focal deficits] Course Course Course Narrative: Review of the laboratory results with the patient has a worsening BUN and creatinine at this time was discussed with Dr. Frederick Cai who agrees patient needs IV fluids and will recheck to see if there is an improvement in his BUN and creatinine. Minimal improvement in his creatinine function after 1 L of fluid. The patient is of slight build only 55 kg. But admits also that he does not drink enough water at this time we will discharge the patient home with encouragement to drink more fluids and follow-up as stated with his cardiothoracic surgeon and his PCP. Again patient's case discussed with Dr. Peck prior to discharge Quality Measures none Orders Category Date Time Status EKG (ED ONLY) *Do not use* NOW Care 12/17/24 16:09 Completed Saline [Insert IV] NOW Care 12/17/24 19:[address] chest wo con Stat Exams 12/17/24 18:52 Completed EKG (ED Only) Stat Exams 12/17/24 16:09 Draft XR chest 1V Stat Exams 12/17/24 16:09 Completed BNP [B-Type Natriuretic Peptide] Stat Lab 12/17/24 16:28 Completed CBC Stat Lab 12/17/24 16:28 Completed Comprehensive Metabolic Panel Stat Lab 12/17/24 16:28 Completed Comprehensive Metabolic Panel Stat Lab 12/17/24 19:44 Completed Troponin I Stat Lab 12/17/24 16:28 Completed Troponin I Stat Lab 12/17/24 19:44 Completed Sodium Chloride 0.9% 1000 ml [Ns] 1,000 ml Med 12/17/24 19:42 Discontinued IV 999 mls/hr Vital Signs Vital signs: Vital Signs Temperature 98.1 F 12/17/24 16:02 Pulse Rate 74 12/17/24 16:02 Respiratory Rate 18 12/17/24 16:02 Blood Pressure 185/101 H 12/17/24 16:02 Pulse Oximetry (%) 97 12/17/24 16:02 Oxygen Delivery Method Room Air 12/17/24 16:02 Discharge Plan Plan Patient Disposition: HOME (Self Care) Patient condition on transfer: Stable Prescriptions/Referrals Prescriptions/Med Rec: No Action Xarelto 15 mg Tablet 15 mg PO QPM hydrocodone-acetaminophen 10-325 mg Tablet 1 tab PO BID PRN (Reason: Pain) doxazosin 4 mg Tablet 4 mg PO QDAY diazepam 10 mg Tablet 10 mg PO Q12H PRN (Reason: prn) escitalopram oxalate 20 mg tablet 20 mg PO QDAY Patient Comments: TAKE 1 TABLET BY MOUTH EVERY DAY Anoro Ellipta 62.5-25 mcg/actuation blister with device 1 inh INHALATION QDAY Patient Comments: INHALE 1 PUFF BY MOUTH ONCE A DAY amlodipine 5 mg tablet 5 mg PO QDAY Qty: 30 1RF acetaminophen-codeine 300-15 mg tablet 1 tab PO Q8H PRN (Reason: pain) Qty: 14 0RF hydrocodone-acetaminophen 10-325 mg tablet 1 tab PO BID MDD 4 g APAP PRN (Reason: pain) Qty: 15 0RF hydrocodone-acetaminophen 10-325 mg tablet 1 tab PO BID MDD 4 g APAP PRN (Reason: pain) Qty: 15 0RF krxjnimcaj-irgz-hq-ellie-camphor 1.5-2.5-4-2 % kit, patch, solution drops 1 ea topical QDAY PRN (Reason: pain) Qty: 30 0RF Referrals: Carlos Hutton MD [Primary Care Provider, Family Practice] - In 1 week Problem List Clinical Impression: Chest pain, Renal insufficiency Patient/Caregiver Discharge Instructions Education Materials: ED Chest Pain, Uncertain Cause, ED Renal Insufficiency Additional Instructions: Drink more water, follow-up with your primary care doctor as well as the cardiothoracic surgeon. Print Language: Pakistani Stand Alone Forms: Needcheck Info., Patient Portal Info Letter NAMRATA/PARUL Supervising Physician YOLA Supervising Physician: Shekhar ROSSIP [facility] Clinical Information Provided by: patient Medical Records reviewed [facility] [place] Medical Records additional comments: Medical records show an extensive workup on 12/13 for thoracic aneurysm, spoke with Dr. Spangler, who is present today, who states that this patient does not warrant a further workup of his thoracic aneurysm as the patient's chest x-rays are unchanged there is no widened mediastinum and he is asymptomatic 3 hours after the resolution of the chest pain. EKG Interpretation EKG #1: EKG Interpretation: EKG performed at 1611 shows a ventricular rate of 71 DC interval of 162 QRS of 8 9 QTc of 399. This is sinus rhythm. Labs Labs: interpreted by ct Lab(s) Interpretation(s): CBC shows a mild anemia with a hemoglobin of 12.6 and 38.4 respectively no leukocytosis, thrombocytopenia CMP shows a creatinine of 2.2 BUN of 55 glucose of 96. Troponin is unremarkable BNP within acceptable limits. Medication Administration(s) none Medication Administration History Discontinued Medications Sodium Chloride (Ns) 1,000 mls @ 999 mls/hr IV .Q1H1M ONE Stop: 12/17/24 20:42 Last Admin: 12/17/24 20:21 Dose: 999 mls/hr Documented By: AGUSTIN
[2024-12-17] MEDS: SODIUM CHLORIDE 0.9% 1000 ML 1,000 ML 999 ML IV (20:21)
[2024-12-17 20:26] LABS: Troponin I < 0.020 ng/mL (0.0-0.045)
[2024-12-17 21:38] LABS: Alanine Aminotransferase 12 U/L (10-49); Albumin, Serum 4.6 gm/dL (3.4-4.8); Albumin/Globulin Ratio 1.9 (1.2-2.2); Alkaline Phosphatase 95 U/L (46-116); Anion Gap 8 (7-16); Aspartate Amino Transferase 21 U/L (0-34); BUN/Creatinine Ratio 24 Ratio (12-20); Bilirubin,Total 0.3 mg/dL (0.3-1.2); Blood Urea Nitrogen 53 mg/dL (9-23); Calcium 9.8 mg/dL (8.3-10.6); Calcium (Corrected) 9.8 mg/dL (8.5-10.1); Carbon Dioxide 27.7 mMol/L (20.0-31.0); Chloride 106 mMol/L (98-107); Creatinine (Component) 2.2 mg/dL (0.6-1.3); Estimated Creatinine Clearance 24.3 mL/min (>60); Globulin 2.4 gm/dL (2.3-3.5); Glucose 100 mg/dL (74-106); Osmolality,Calculated 297 (275-295); Potassium 3.3 mMol/L (3.4-5.1); Sodium 142 mMol/L (136-145); Total Protein 7.0 gm/dL (5.7-8.2); eGFR 31 See Note
== END 2024-12-17 22:26 | disposition home or self-care (01) ==
PROVIDERS: Nurse Practitioner Family; Registered Nurse General Practice; Emergency Provider Emergency Medicine; PCP Family Medicine
DX: N28.9 Disorder of kidney and ureter, unspecified (principal); R07.9 Chest pain, unspecified; I44.4 Left anterior fascicular block; I48.91 Unspecified atrial fibrillation; I10 Essential (primary) hypertension; F17.210 Nicotine dependence, cigarettes, uncomplicated; Z95.0 Presence of cardiac pacemaker
CPT/HCPCS: 36415; 71045; 71250; 80053; 83880; 84484; 85025; 93005; 96360; 96361; 99284; J7030